=== PATIENT | female | born 1945 | race Caucasian/White ===

== ENCOUNTER 2021-10-22 16:59 | Emergency (ER) | payer MEDICARE, BC ==
[2021-10-22] MEDS ORDERED: Lanoxin 0.5 MG/2 ML INJECTION IV ONE (17:13)
[2021-10-22 17:47] VITALS: O2SAT 100
[2021-10-22] MEDS ORDERED: Lanoxin 0.5 MG/2 ML INJECTION ONE (17:50)
[2021-10-22 17:58] LABS: Hematocrit 27.2 % (35-47); Hemoglobin 9.3 g/dL (12.0-16.0); Mean Cell Volume 112.9 fL (78-100); Mean Corpuscular Hemoglobin 38.6 pg (26-32); Mean Corpuscular Hgb Concent. 34.2 g/dL (32-36); Mean Platelet Volume 10.9 fL (7.5-11.0); Platelet Count 63 x10^3/uL (150-450); Red Blood Count 2.41 x10^6/uL (4.1-5.4); Red Cell Distribution Width 18.6 % (11.5-14.0); White Blood Count 5.1 x10^3/uL (4.0-10.5)
[2021-10-22 18:24] LABS: ANION GAP 10.1 MEQ/L (5-15); BILIRUBIN,TOTAL 3.5 mg/dL (0.2-1.3); Calcium 8.5 mg/dL (8.4-10.2); Creatinine 1 1.49 mg/dL (0.52-1.04); EST GLOMERULAR FILTRATION RATE 36.2 ML/MIN; MAGNESIUM 1.7 mg/dL (1.6-2.3); Total Protein 6.9 g/dL (6.3-8.2)
[2021-10-22 18:30] LABS: Potassium 2.9 mmol/L (3.5-5.1)
[2021-10-22] MEDS ORDERED: K-LYTE PO ONE (18:30)
[2021-10-22 18:33] LABS: INR 1.48 (0.8-3.0); PROTIME 15.1 SECONDS (9.4-12.5); PTT 31.7 SECONDS (25.1-36.5)
[2021-10-22 18:54] LABS: D-DIMER QUANTITATIVE 6.22 ng/mL (0.0-0.50)
--- NOTE | 2021-10-22 18:59 | ERPHSYRPT ---
- History of Present Illness Time Seen by Provider: 10/22/21 17:40 Historian: patient, EMS Exam Limitations: no limitations Patient Subjective Stated Complaint: hypotension and tachycardia Triage Nursing Assessment: pt to ED by EMS from [facility] for reported hypotension and tachycardia after completing dialysis. EMS reports that [facility] staff stated pts BP was 70 systolic and HR in the 180s. on arrival pt HR is irregular and rates between 110-120 bpm. heart sounds clear, lung sounds clear. A&Ox4. Physician History: Patient is a 75-year-old female who is a dialysis patient and was sent to the ER from dialysis by ambulance when it was found she was tachycardic and her blood pressure was reportedly in the 50s. EMS found her blood pressure to be in the 100/50 range and her heart rate to be 110. She had no history of atrial for but the original tracings look like atrial fib. She denies any shortness of breath she denies any chest pain she denies any discomfort whatsoever. Timing/Duration: today Activities at Onset: none Severity of Pain-Max: none Severity of Pain-Current: none Nitro Today/Relief: no nitro taken today Aspirin Treatment Today: no aspirin today Allergies/Adverse Reactions: ciprofloxacin Allergy (Severe, Verified 10/22/21 17:15) adhesive tape Allergy (Mild, Verified 10/22/21 17:15) ibuprofen Allergy (Mild, Verified 10/22/21 17:15) Androgenic Anabolic Steroid Allergy (Unknown, Verified 10/22/21 17:15) codeine Allergy (Unknown, Verified 10/22/21 17:15) fluoxetine Allergy (Unknown, Verified 10/22/21 17:15) NSAIDS (Non-Steroidal Anti-Inflamma Allergy (Unknown, Verified 10/22/21 17:15) Home Medications: Amiodarone HCl 200 mg PO DAILY 10/22/21 [History] Furosemide 40 mg [Lasix 40 MG] 40 mg PO DAILY 10/22/21 [History] Hydrocodone/Acetaminophen [Hydrocodone-Acetamin 5-325 mg] 1 each PO BID PRN 10/22/21 [History] Levothyroxine Sodium 100 Mcg [Synthroid 100 Mcg] 125 mcg PO DAILY 10/22/21 [History] Midodrine HCl [Proamatine] 10 mg PO TID 10/22/21 [History] Hx Tetanus, Diphtheria Vaccination/Date Given: Yes Hx Influenza Vaccination/Date Given: Yes Hx Pneumococcal Vaccination/Date Given: No Immunizations Up to Date: Yes Travel Risk - International Travel Have you traveled outside of the country in past 3 weeks: No - Coronavirus Screening Are you exhibiting any of the following symptoms?: No Close contact with a COVID-19 positive Pt in past 14-21 Days: No - Vaccine Status Have you recieved a Covid-19 vaccination: Yes Mosquito Sprayer: Moderna - Vaccination Dates Date of 2cond Vaccination (if applicable): unknown - Review of Systems Constitutional: No Fever, No Chills Eyes: No Symptoms Ears, Nose, & Throat: No Symptoms Respiratory: No Cough, No Dyspnea Cardiac: Palpitations, No Chest Pain, No Edema, No Syncope Abdominal/Gastrointestinal: No Abdominal Pain, No Nausea, No Vomiting, No Diarrhea Genitourinary Symptoms: No Dysuria Musculoskeletal: No Back Pain, No Neck Pain Skin: No Rash Neurological: No Dizziness, No Focal Weakness, No Sensory Changes Psychological: No Symptoms Endocrine: No Symptoms All Other Systems: Reviewed and Negative - Past Medical History Pertinent Past Medical History: Yes - Social History Smoking Status: Never smoker Exposure to second hand smoke: No Patient Lives Alone: No () - Nursing Vital Signs Nursing Vital Signs: Initial Vital Signs Temperature 98.5 F 10/22/21 17:30 Pulse Rate 113 H 10/22/21 17:30 Respiratory Rate 17 10/22/21 17:30 Blood Pressure 114/61 10/22/21 17:30 O2 Sat by Pulse Oximetry 100 10/22/21 17:30 Pain Scale Pain Intensity 0 - Physical Exam General Appearance: no apparent distress, alert Eye Exam: PERRL/EOMI, eyes nml inspection Ears, Nose, Throat Exam: normal ENT inspection, moist mucous membranes Neck Exam: normal inspection, non-tender, supple, full range of motion Respiratory Exam: normal breath sounds, lungs clear, No respiratory distress Cardiovascular Exam: normal heart sounds, irregular Gastrointestinal/Abdomen Exam: soft, No tenderness, No mass Back Exam: normal inspection, No CVA tenderness, No vertebral tenderness Extremity Exam: normal inspection, normal range of motion Neurologic Exam: alert, oriented x 3, cooperative, normal mood/affect, sensation nml, No motor deficits Skin Exam: normal color, warm, dry SpO2: 100 - Course Nursing assessment & vital signs reviewed: Yes EKG Interpreted by Me: RATE (109), A-fib, NORMAL AXIS, NORMAL INTERVALS, Non- specific ST Changes - Radiology Exams Chest X-ray Interpretation: Interpreted by me (Cardiomegaly) Ordered Tests: Active Orders 24 hr Category Date Time Status Dental Treatment Coordinator STAT Care 10/22/21 17:14 Active EKG-ER Only STAT Care 10/22/21 17:13 Active IV Insertion STAT Care 10/22/21 17:13 Active CHEST 1 VIEW (PORTABLE) Stat Exams 10/22/21 17:16 Taken CBC W DIFF Stat Lab 10/22/21 17:45 Results CMP Stat Lab 10/22/21 17:45 Completed D-DIMER QUANTITATIVE Stat Lab 10/22/21 17:45 Received LIPASE Stat Lab 10/22/21 17:45 Completed Lactic Acid Stat Lab 10/22/21 17:45 Completed MAGNESIUM Stat Lab 10/22/21 17:45 Completed Manual Differential NC Stat Lab 10/22/21 17:45 Results NT PRO BNP Stat Lab 10/22/21 17:45 Completed PROTIME WITH INR Stat Lab 10/22/21 17:45 Received PTT Stat Lab 10/22/21 17:45 Received Pathologist Review Stat Lab 10/22/21 17:45 Results TROPONIN Q3H Lab 10/22/21 17:45 Completed TROPONIN Q3H Lab 10/22/21 20:15 Ordered TROPONIN Q3H Lab 10/22/21 23:15 Ordered TROPONIN Q3H Lab 10/23/21 02:15 Ordered TROPONIN Q3H Lab 10/23/21 05:15 Ordered TSH [TSH, 3RD Generation] Stat Lab 10/22/21 17:45 Completed UA W/RFX CULTURE Stat Lab 10/22/21 Ordered Medication Summary Discontinued Medications Generic Name Dose Route Start Last Admin Trade Name Freq PRN Reason Stop Dose Admin Digoxin 0.5 mg 10/22/21 17:13 10/22/21 17:52 Digoxin 0.5 Mg/2 Ml Injection IV 10/22/21 17:14 0.5 mg STAT ONE Administration Digoxin Confirm 10/22/21 17:50 Digoxin 0.5 Mg/2 Ml Injection Administered 10/22/21 17:51 Dose 0.5 mg .ROUTE .STK-MED ONE Potassium Bicarbonate 25 meq 10/22/21 18:30 Potassium Bicarbonate 25 Meq Tab PO 10/22/21 18:31 STAT ONE Lab/Rad Data: Laboratory Result Diagrams 10/22/21 17:45 10/22/21 17:45 Laboratory Results 10/22/21 10/22/21 10/22/21 Range/Units 17:45 17:45 17:45 WBC (4.0-10.5) x10^3/uL RBC (4.1-5.4) x10^6/uL Hgb (12.0-16.0) g/dL Hct (35-47) % MCV (78-100) fL MCH (26-32) pg MCHC (32-36) g/dL RDW (11.5-14.0) % Plt Count (150-450) x10^3/uL MPV (7.5-11.0) fL Smear Path Review Sodium 133 L (137-145) mmol/L Potassium 2.9 L* (3.5-5.1) mmol/L Chloride 95 L (98-107) mmol/L Carbon Dioxide 31 H (22-30) mmol/L Anion Gap 10.1 (5-15) MEQ/L BUN 14 (7-17) mg/dL Creatinine 1.49 H (0.52-1.04) mg/dL Estimated GFR 36.2 ML/MIN Glucose 80 (74-106) mg/dL Lactic Acid (0.4-2.0) Calcium 8.5 (8.4-10.2) mg/dL Magnesium 1.7 (1.6-2.3) mg/dL Total Bilirubin 3.50 H (0.2-1.3) mg/dL AST 52 H (14-36) U/L ALT 24 (0-35) U/L Alkaline Phosphatase 111 (38-126) U/L Troponin I < 0.012 (0.000-0.034) ng/mL NT-Pro-B Natriuret Pep 3300 H (0-1800) pg/mL Serum Total Protein 6.9 (6.3-8.2) g/dL Albumin 3.0 L (3.5-5.0) g/dL Lipase 193 (23-300) U/L TSH 3rd Generation 0.054 L (0.47-4.68) mIU/L 10/22/21 10/22/21 Range/Units 17:45 17:45 WBC 5.1 (4.0-10.5) x10^3/uL RBC 2.41 L (4.1-5.4) x10^6/uL Hgb 9.3 L (12.0-16.0) g/dL Hct 27.2 L (35-47) % MCV 112.9 H (78-100) fL MCH 38.6 H (26-32) pg MCHC 34.2 (32-36) g/dL RDW 18.6 H (11.5-14.0) % Plt Count 63 L (150-450) x10^3/uL MPV 10.9 (7.5-11.0) fL Smear Path Review Pending Sodium (137-145) mmol/L Potassium (3.5-5.1) mmol/L Chloride (98-107) mmol/L Carbon Dioxide (22-30) mmol/L Anion Gap (5-15) MEQ/L BUN (7-17) mg/dL Creatinine (0.52-1.04) mg/dL Estimated GFR ML/MIN Glucose (74-106) mg/dL Lactic Acid 1.2 (0.4-2.0) Calcium (8.4-10.2) mg/dL Magnesium (1.6-2.3) mg/dL Total Bilirubin (0.2-1.3) mg/dL AST (14-36) U/L ALT (0-35) U/L Alkaline Phosphatase (38-126) U/L Troponin I (0.000-0.034) ng/mL NT-Pro-B Natriuret Pep (0-1800) pg/mL Serum Total Protein (6.3-8.2) g/dL Albumin (3.5-5.0) g/dL Lipase (23-300) U/L TSH 3rd Generation (0.47-4.68) mIU/L - Progress Progress: improved Air Movement: good Progress Note: 10/22/21 18:59 Patient has an appointment with her rim roller operator at 330 tomorrow afternoon in [place] and does not wish to stay in the hospital she will make sure she sees her rim roller operator tomorrow. She is adamant that she will not stay here tonight and wishes to see her rim roller operator tomorrow 10/22/21 19:05 Blood Culture(s) Obtained: No Antibiotics given: No - Departure Departure Disposition: Home Clinical Impression: New onset atrial fibrillation Condition: Fair Critical Care Time: No Referrals: DOCTOR,NO FAMILY [Primary Care Provider] - Follow up/PCP as directed Instructions: Atrial Fibrillation (DC)
[2021-10-22] MEDS ORDERED: K-LYTE ONE (19:14)
[2021-10-22 19:19] VITALS: BP 117/69; PULSE 120
[2021-10-22 20:55] LABS: Lymphocytes 8 % (24-44); Macrocytosis 1+; Monocyte 9 % (0.0-12.0); Platelet Estimate DECREASED (NORMAL); Targert Cells 1+; Total Cells Counted 100
--- NOTE | 2021-10-23 08:42 | XRAY ---
Indication: Hypotension. Tachycardia. Comparison: None Portable chest hyperinflated without focal infiltrate, consolidation, or large effusion. Heart borderline enlarged with right double lumen dialysis catheter and left Port-A-Cath. Descending aorta is mildly tortuous. Bony thorax intact with mild osteopenia, degenerative changes, and mild double curvature scoliosis. Limited upper abdomen demonstrates stent graft overlying liver. Impression: Nonacute chest with chronic features.
== END 2021-10-22 19:31 | disposition home or self-care (01) ==
LOC: ED 16:59
DX: I48.91 Unspecified atrial fibrillation (principal); R03.1 Nonspecific low blood-pressure reading; Z99.2 Dependence on renal dialysis; Z79.891 Long term (current) use of opiate analgesic; Z79.899 Other long term (current) drug therapy
CPT/HCPCS: 36000; 36415; 71045; 80053; 83605; 83690; 83735; 83880; 84443; 84484; 85025; 85379; 85610; 85730; 93005; 93041; 96374; 99284; J1160; J1642; A9270-GY